=== PATIENT | female | born 1955 | race Caucasian/White ===

== ENCOUNTER 2024-02-13 12:03 | Emergency (ER) | payer MEDICARE, MEDICAID ==
[~2024-02-13] VITALS: Ht 160 cm; Wt 150.0 kg
[2024-02-13 12:07] VITALS: TEMP 98.3; O2SAT 95
[2024-02-13 15:04] VITALS: BP 130/71; PULSE 88; RESP 18
[2024-02-13] MEDS: MORPHINE SULFATE 4 MG/ML INJ (FOR IV/IM USE) IM ONE (15:04)
[2024-02-13] MEDS ORDERED: IBUP-2029 MT (18:16)
[2024-02-13] MEDS ORDERED: CYCL10TA21 MT (18:16)
== END 2024-02-13 18:29 | disposition home or self-care (01) ==
LOC: ER 12:03 → EDBD 12:03 → ER 18:29
DX: M54.40 Lumbago with sciatica, unspecified side (principal); I10 Essential (primary) hypertension; Z86.73 Personal history of transient ischemic attack (TIA), and cerebral infarction without residual deficits
CPT/HCPCS: 99285; 72131; 96372; J2270